=== PATIENT | female | born 1935 | race Caucasian/White ===

== ENCOUNTER 2016-07-11 15:39 | Outpatient (CLI) | payer MEDICARE, OTHER | END 2016-07-11 15:40 | disposition home or self-care (01) | DX: M16.0 Bilateral primary osteoarthritis of hip (principal) ==

== ENCOUNTER 2021-04-02 06:13 | Outpatient (CLI) | payer MEDICARE | END 2021-04-02 06:14 | disposition EMS.NT | LOC: EMS 06:13 | DX: I83.893 Varicose veins of bilateral lower extremities with other complications (principal) ==

== ENCOUNTER 2021-04-02 09:17 | Outpatient (CLI) | payer MEDICARE | END 2021-04-02 09:18 | disposition critical access hospital (66) | LOC: EMS 09:17 | DX: R55 Syncope and collapse (principal); R56.9 Unspecified convulsions | CPT/HCPCS: A0425; A0427 ==

== ENCOUNTER 2021-04-02 09:55 | Emergency (ER) | payer MEDICARE ==
[2021-04-02] MEDS ORDERED: SODIUM CHLORIDE 0.9% 1,000 ML IV STA (10:09)
--- NOTE | 2021-04-02 10:11 | ED Physician Documentation ---
History of Present Illness - Stated complaint Stated Complaint: BLEEDING/WEAKNESS - Chief complaint Chief Complaint: Neuro - History obtained from History obtained from: Patient, Family, EMS - History of Present Illness Timing: Today - Additonal information Additional information: 85-year-old female with a history of atrial fibrillation on Eliquis has had a bleeding from a varicose vein and apparently there was quite a bit of blood loss associated with this the bleeding is now stopped however the patient has had tonic-clonic seizure associated with attempting to sit up this morning. On the second medic visit the patient was transported the hospital for further evaluation. Review of Systems Constitutional: denies: Fever Eyes: denies: Decreased vision Ears: denies: Ear pain Nose: denies: Congestion Throat: denies: Sore throat Cardiac: denies: Chest pain / pressure, Palpitations Respiratory: denies: Dyspnea, Cough GI: denies: Abdominal Pain, Nausea, Vomiting, Constipation, Diarrhea : denies: Dysuria Skin: denies: Rash Musculoskeletal: reports: Extremity pain. denies: Neck pain, Back pain Neurologic: reports: Generalized weakness, Seizure. denies: Focal weakness, Numbness, Headache, Head injury, LOC PD PAST MEDICAL HISTORY - Present Medications Home Medications: Ambulatory Orders Medication Instructions Recorded Confirmed Apixaban [Eliquis] 5 mg ORAL BID 04/02/21 04/02/21 Metoprolol Succinate [Toprol Xl] 50 mg PO BID 04/02/21 04/02/21 Pravastatin [Pravachol] 10 mg PO HS 04/02/21 04/02/21 - Allergies Allergies/Adverse Reactions: Allergies Allergy/AdvReac Type Severity Reaction Status Date / Time No Known Drug Allergies Allergy Verified 04/02/21 10:00 PD ED PE NORMAL - Vitals Vital signs reviewed: Yes - General General: No acute distress, Well developed/nourished - HEENT HEENT: Atraumatic (to deep palpation of the entire skull ), PERRL, EOMI - Neck Neck: Supple, no meningeal sign, No bony TTP - Cardiac Cardiac: RRR, No murmur - Respiratory Respiratory: No respiratory distress, Clear bilaterally - Abdomen Abdomen: Normal bowel sounds, Soft, Non tender, Non distended, No organomegaly - Back Back: No CVA TTP, No spinal TTP - Derm Derm: Normal color, Warm and dry, No rash - Extremities Extremities: No deformity, No edema - Neuro Neuro: net sql developer 2-12 intact, No motor deficit, No sensory deficit, Normal speech Eye Opening: Spontaneous Motor: Obeys Commands Verbal: Confused GCS Score: 14 - Psych Psych: Normal mood, Normal affect Results - Vitals Vitals: Vital Signs - 24 hr 04/02/21 04/02/21 04/02/21 10:00 10:14 11:43 Temperature 36.3 C L 36 C L Heart Rate 79 81 97 Respiratory 18 18 20 Rate Blood Pressure 113/61 105/59 L 105/53 L O2 Saturation 99 100 96 04/02/21 12:58 Temperature 36 C L Heart Rate 97 Respiratory 18 Rate Blood Pressure 116/66 O2 Saturation 97 Oxygen O2 Source Room air - EKG (time done) 1021 Rate: Rate (enter#) (84) Rhythm: Atrial fibrillation [place]: LAD Intervals: Prolonged QT (borderline) Ischemia: Non specific changes (diffuse T wave flattening. ) Compare to prior EKG: Old EKG unavailable Computer interpretation: Agree with computer - Labs Labs: Laboratory Tests 04/02/21 04/02/21 04/02/21 10:32 10:32 10:32 WBC 12.3 H RBC 2.55 L Hgb 8.5 L Hct 25.6 L MCV 100.4 H MCH 33.3 H MCHC 33.2 RDW 12.8 Plt Count 125 L MPV 10.8 Neut # (Auto) 10.8 H Lymph # (Auto) 0.6 L [place] # (Auto) 0.8 Eos # (Auto) 0.0 Baso # (Auto) 0.0 Absolute Nucleated RBC 0.00 Nucleated RBC % 0.0 Sodium 133 L Potassium 3.7 Chloride 102 Carbon Dioxide 21 Anion Gap 10.0 BUN 28 H Creatinine 1.0 Estimated GFR (MDRD) 53 L Glucose 122 H Calcium 8.0 L Total Bilirubin 0.9 AST 64 H ALT 56 Alkaline Phosphatase 41 L Total Protein 5.2 L Albumin 3.2 Globulin 2.0 L Albumin/Globulin Ratio 1.6 Lipase 32 Blood Type O POSITIVE Antibody Screen NEGATIVE 04/02/21 12:47 WBC RBC Hgb 9.4 L Hct 27.6 L MCV MCH MCHC RDW Plt Count MPV Neut # (Auto) Lymph # (Auto) [place] # (Auto) Eos # (Auto) Baso # (Auto) Absolute Nucleated RBC Nucleated RBC % Sodium Potassium Chloride Carbon Dioxide Anion Gap BUN Creatinine Estimated GFR (MDRD) Glucose Calcium Total Bilirubin AST ALT Alkaline Phosphatase Total Protein Albumin Globulin Albumin/Globulin Ratio Lipase Blood Type Antibody Screen - Rads (name of study) CT head Radiology: Prelim report reviewed (Impression: No intracranial hemorrhage is seen. No significant intracranial abnormality is seen. Age-appropriate brain parenchymal volume loss and chronic small vessel ischemic changes can be seen.), EMP read indepedently, See rad report Procedures - IVC sono (time) 1004 Bedside IVC sono: IVC measures (cm) (1.02), IVC collapsed c insp (cm) ( complete), Dehydration (est 1-2 liter deficit after 500ml in.) PD MEDICAL DECISION MAKING - ED course Complexity details: reviewed results, re-evaluated patient, considered differential, d/w patient, d/w family ED course: 85-year-old pleasantly demented female has had some bleeding beginning last night and bled quite a bit over her house. The family brings in photographs of the amount of blood loss and the patient had recurrent seizure when trying to sit up. She arrived to the emergency department pale and her color improved with additional fluids. She was found to be deficient more than 1 L after the first liter had been infused. She did receive a second liter of fluid felt improved her initial blood counts were concerning for possible transfusion her second blood counts were improved. She is well outside of the transfusion threshold. The road test is attempted in the emergency department Departure - Departure Disposition: 01 Home, Self Care Clinical Impression: Acute blood loss anemia, Dehydration determined by examination, Syncopal seizure Condition: Stable Instructions: ED Anemia Type Not Specified, ED Dehydration Follow-Up: EMRE ADAMS MD [Physician No Access] - Comments: Ana Rosa has lost a lot of blood but she has not lost enough to need a transfusion. She will be weaker than normal and will require some time to recover her blood counts. A follow up with her primary care physician in the next 2 weeks is recommended.
[2021-04-02 10:44] LABS: BASOPHILS % (AUTO) 0.2 %; HCT - HEMATOCRIT 25.6 % (37.0-47.0); HGB - HEMOGLOBIN 8.5 g/dL (12.0-16.0); LYMPHOCYTES # (AUTO) 0.6 10^3/uL (1.5-3.5); LYMPHOCYTES % (AUTO) 4.8 %; MEAN CORPUSCULAR HEMOGLOBIN 33.3 pg (27.0-31.0); MEAN CORPUSCULAR HGB CONC 33.2 g/dL (32.0-36.0); MEAN CORPUSCULAR VOLUME 100.4 fL (81.0-99.0); MEAN PLATELET VOLUME 10.8 fL (7.9-10.8); MONOCYTES # (AUTO) 0.8 10^3/uL (0.0-1.0); MONOCYTES % (AUTO) 6.7 %; NEUTROPHILS # (AUTO) 10.8 10^3/uL (1.5-6.6); NEUTROPHILS % (AUTO) 87.8 %; PLT - PLATELET COUNT 125 10^3/uL (130-450); RED BLOOD COUNT 2.55 10^6/uL (4.20-5.40); RED CELL DISTRIBUTION WIDTH 12.8 % (12.0-15.0); WHITE BLOOD COUNT 12.3 x10^3/uL (4.8-10.8)
[2021-04-02 10:52] LABS: ALBUMIN 3.2 g/dL (3.2-5.5); ALBUMIN/GLOBULIN RATIO 1.6 (1.0-2.2); BILIRUBIN,TOTAL 0.9 mg/dL (0.2-1.0); POTASSIUM 3.7 mmol/L (3.5-5.0); TOTAL PROTEIN 5.2 g/dL (6.7-8.2)
--- NOTE | 2021-04-02 12:41 | CT Report ---
PROCEDURE: HEAD WO INDICATIONS: fall altered eliquis TECHNIQUE: Noncontrast 4.5 mm thick angled axial sections acquired from the foramen magnum to the vertex. For r adiation dose reduction, the following was used: automated exposure control, adjustment of mA and/or kV according to patient size. COMPARISON: None. FINDINGS: Image quality: There is streak artifact seen through the skull base. CSF spaces: Basal cisterns are patent. No extra-axial fluid collections. Ventricles are normal in size and shape. Brain: No midline shift. No intracranial masses or hemorrhage. Jeffers-white matter interface is norm al. Skull and face: Calvarium and visualized facial bones are intact, without suspicious lesions. Sinuses: Visualized sinuses and mastoids are clear. IMPRESSION: No intracranial hemorrhage is seen. No significant intracranial abnormality is seen. Age-appropriate brain parenchymal volume loss and chronic small vessel ischemic change can be seen. Reviewed by: Oleksandr Roberts MD on 04/02/2021 11:39 AM CHRISTINA Approved by: Oleksandr Roberts MD on 04/02/2021 11:39 AM CHRISTINA Station ID: [id number]
[2021-04-02 12:51] LABS: HCT - HEMATOCRIT 27.6 % (37.0-47.0); HGB - HEMOGLOBIN 9.4 g/dL (12.0-16.0)
[2021-04-02 13:52] VITALS: BP 120/64
== END 2021-04-02 13:49 | disposition home or self-care (01) ==
LOC: EDUNIT# → ED 09:55
DX: D62 Acute posthemorrhagic anemia (principal); E86.0 Dehydration; G40.89 Other seizures
CPT/HCPCS: 36415; 80053; 83690; 85014; 85018; 85025; 86850; 86900; 86901; 93005; 96360; 99284

== ENCOUNTER 2021-06-23 13:25 | Outpatient (CLI) | payer MEDICARE, OTHER | END 2021-06-23 13:26 | disposition critical access hospital (66) | LOC: EMS 13:25 | DX: I83.892 Varicose veins of left lower extremity with other complications (principal); R56.9 Unspecified convulsions | CPT/HCPCS: A0425; A0427 ==

== ENCOUNTER 2021-06-23 14:03 | Observation (INO) | payer MEDICARE, OTHER ==
--- NOTE | 2021-06-23 14:03 | ED Physician Documentation ---
PD HPI SYNCOPE - Stated complaint Stated Complaint: SZ/S/P BLEEDING - History obtained from History obtained from: Patient, EMS - History of Present Illness Witnessed: Witnessed (by daughter) Timing - onset: Today Duration: Minutes (daughter reports patient pale and lightheaded with leg bleeding, then fainted and had some twitching seizure like movements briefly. Roused slowly after a minute or so. EMS subsequently says pt confused on their arrival, with slow improvement enroute. They applied tight wrap over wound.) Preceding symptoms: Other (she was in bathroom and not aware of injury per se, but noted onset of bleeding left lower leg briskly (darker blood). Daughter held towel over it but bleeding continued. patient got lightheaded and pale and fainted. LOC for minute with seizure like tremoring per daughter. EMS reports confusion.). No: Headache, Chest pain, Abdominal pain Associated symptoms: Seizure (daughter states tremoring movements when fainted.). No: Incontinant of urine, Chest pain, Abdominal pain Contributing factors: Noxious stimulae (bleeding from leg. Not having pain per se.), Other (having brisk bleeding from lower leg varicose vein injury (just rubbed it in bathroom).) Injury occurred: No: Head injury, Neck injury Similar symptoms before: Diagnosis (had bleeding from varicose vein with subsequent fainting 2 months ago. Hgb 8.4 at that time and did not need transfusion.) Recently seen: Emergency Dept (2 months ago for similar) Review of Systems Constitutional: denies: Fever, Chills Nose: denies: Rhinorrhea / runny nose, Congestion Throat: denies: Sore throat Cardiac: denies: Chest pain / pressure Respiratory: denies: Dyspnea, Cough GI: denies: Abdominal Pain, Nausea, Vomiting, Diarrhea Skin: reports: Abrasion (s). denies: Laceration (s) Musculoskeletal: denies: Neck pain, Back pain Neurologic: reports: Syncope. denies: Focal weakness, Numbness, Headache PD PAST MEDICAL HISTORY - Past Medical History Cardiovascular: Hypertension, Atrial fibrillation (on metoprolol 50 mg BID) Respiratory: None Neuro: None Endocrine/Autoimmune: None - Present Medications Home Medications: Ambulatory Orders Medication Instructions Recorded Confirmed Apixaban [Eliquis] 5 mg ORAL BID 04/02/21 04/02/21 Pravastatin [Pravachol] 10 mg PO HS 04/02/21 04/02/21 Metoprolol Tartrate [Lopressor] 50 mg PO BID 06/23/21 - Allergies Allergies/Adverse Reactions: Allergies Allergy/AdvReac Type Severity Reaction Status Date / Time No Known Drug Allergies Allergy Verified 06/23/21 14:10 - Living Situation Living Situation: reports: With family Living Arrangement: reports: At home - Social History Does the pt smoke?: No Does the pt drink ETOH?: No - Family History Family history: reports: CAD PD ED PE NORMAL - Vitals Vital signs reviewed: Yes (BP borderline hypotensive. ) - General General: Alert and oriented X 3, No acute distress - HEENT HEENT: Atraumatic - Neck Neck: Supple, no meningeal sign, No adenopathy - Cardiac Cardiac: No murmur. No: RRR (irregular but rate controlled. ) - Respiratory Respiratory: Clear bilaterally, Other (no chestwall tenderness.) - Abdomen Abdomen: Soft, Non tender - Derm Derm: Warm and dry. No: Normal color (generally pale. ) - Extremities Extremities: No tenderness to palpate, Normal ROM s pain, No edema, No calf tenderness / cord, Other (varicosities prominent on both lower legs. Left lower anterolateral with small 1/2 cm or less area of steady bleeding from raised varicosity once dressing removed. THe bleeding can be stopped with single fingertip direct pressure. ) Results - Vitals Vitals: Vital Signs - 24 hr 06/23/21 06/23/21 06/23/21 14:10 14:30 14:48 Temperature 36.5 C Heart Rate 86 83 82 Respiratory 16 16 14 Rate Blood Pressure 105/45 L 96/43 L 106/54 L O2 Saturation 100 100 100 06/23/21 15:23 Temperature Heart Rate 88 Respiratory 16 Rate Blood Pressure O2 Saturation 100 Oxygen O2 Source Room air - EKG (time done) 14:51 Rate: Rate (enter#) (84) Rhythm: Atrial fibrillation [place]: Normal Ischemia: Normal ST segments, Non specific changes. No: ST elevation c/w ischemia - Labs Labs: Laboratory Tests 06/23/21 06/23/21 06/23/21 14:35 14:35 14:35 WBC 7.4 RBC 2.25 L Hgb 6.2 L* Hct 20.3 L MCV 90.2 MCH 27.6 MCHC 30.5 L RDW 16.1 H Plt Count 171 MPV 10.3 Neut # (Auto) 5.8 Lymph # (Auto) 0.9 L [place] # (Auto) 0.7 Eos # (Auto) 0.1 Baso # (Auto) 0.0 Absolute Nucleated RBC 0.00 Nucleated RBC % 0.0 PT INR APTT Sodium 134 L Potassium 3.5 Chloride 106 Carbon Dioxide 21 Anion Gap 7.0 BUN 12 Creatinine 0.8 Estimated GFR (MDRD) 68 L Glucose 131 H Calcium 7.6 L Magnesium 2.1 Total Bilirubin 0.6 AST 18 ALT 11 Alkaline Phosphatase 41 L Troponin I High Sens 7.6 B-Natriuretic Peptide Total Protein 4.9 L Albumin 2.8 L Globulin 2.1 Albumin/Globulin Ratio 1.3 Lipase 32 Blood Type Antibody Screen Crossmatch IS Only 06/23/21 06/23/21 06/23/21 14:35 14:35 14:35 WBC RBC Hgb Hct MCV MCH MCHC RDW Plt Count MPV Neut # (Auto) Lymph # (Auto) [place] # (Auto) Eos # (Auto) Baso # (Auto) Absolute Nucleated RBC Nucleated RBC % PT 16.0 H INR 1.4 H APTT 25.2 Sodium Potassium Chloride Carbon Dioxide Anion Gap BUN Creatinine Estimated GFR (MDRD) Glucose Calcium Magnesium Total Bilirubin AST ALT Alkaline Phosphatase Troponin I High Sens B-Natriuretic Peptide 395 H Total Protein Albumin Globulin Albumin/Globulin Ratio Lipase Blood Type O POSITIVE Antibody Screen NEGATIVE Crossmatch IS Only See Detail - Rads (name of study) chest xray Radiology: Prelim report reviewed (no acute process), See rad report Procedures - Laceration (location) lower leg varicosity Length in cm: 0.5 (varicosity with small 1/2 cm abrasion/lac with brisk dripping of blood when bandage removed. ) Wound type: Stellate Neurovascular status: Sensory intact, Motor intact Anesthesia: Lidocaine 1% with epi Wound preparation: Other (cleansed with tap water well.) Skin layer closure: Nylon, Interrupted, Size #-0 - enter number (4), Sutures - enter # (2), Other (purse stitch done to pull together around the bleeding vessel with cessation of bleeding.) PD MEDICAL DECISION MAKING - ED course Complexity details: reviewed results (significant blood loss with Hgb change from 9.4 last one 2 months ago, and now 6.2. She is still feeling weak and "confused" without headache. ), considered differential (EMS reports large blood loss onto towels at home and dressings enroute. The current dressing on arrival with some blood soaking. ), d/w patient, d/w family (daughter) ED course: acute blood loss with acute on chronic anemia, with syncope and still relatively low BP. Given IV fluids small bolus and BP above 100. SHe will need transfusion so I did not igive large fluid bolus so as to have ability to give blood without fluid overload. Departure - Departure Disposition: ED Place in Observation Clinical Impression: Acute anemia, Syncopal seizure Varicosities of leg Qualifiers: Varicose vein complication: unspecified Laterality: bilateral Qualified Code(s): I83.93 - Asymptomatic varicose veins of bilateral lower extremities Condition: Stable Record reviewed to determine appropriate education?: Yes Discharge Date/Time: 06/23/21 17:02
[2021-06-23] MEDS ORDERED: SODIUM CHLORIDE 0.9% 500 ML IV STA (14:13)
--- NOTE | 2021-06-23 14:52 | XRAY Report ---
PROCEDURE: Chest 1 View X-Ray INDICATIONS: Chest Pain TECHNIQUE: One view of the chest was acquired. COMPARISON: None. FINDINGS: Surgical changes and devices: None. Lungs and pleura: Blunting of the left costophrenic angle. No pneumothorax. Prominent interstitial ma rkings. Mediastinum: Mediastinal contours are within normal limits. Calcified aortic arch. Heart size is at the limits of normal. Bones and chest wall: No suspicious bony lesions. Overlying soft tissues appear unremarkable. IMPRESSION: Suspect trace left pleural effusion. Question pulmonary vasculature engorgement. Reviewed by: Bhanu Mahoney MD on 06/23/2021 2:50 PM PST Approved by: Bhanu Mahoney MD on 06/23/2021 2:50 PM PST Station ID: [id number]
[2021-06-23 14:55] LABS: BASOPHILS % (AUTO) 0.5 %; EOSINOPHILS # (AUTO) 0.1 10^3/uL (0.0-0.7); EOSINOPHILS % (AUTO) 0.7 %; HCT - HEMATOCRIT 20.3 % (37.0-47.0); LYMPHOCYTES # (AUTO) 0.9 10^3/uL (1.5-3.5); LYMPHOCYTES % (AUTO) 11.6 %; MEAN CORPUSCULAR HEMOGLOBIN 27.6 pg (27.0-31.0); MEAN CORPUSCULAR HGB CONC 30.5 g/dL (32.0-36.0); MEAN CORPUSCULAR VOLUME 90.2 fL (81.0-99.0); MEAN PLATELET VOLUME 10.3 fL (7.9-10.8); MONOCYTES # (AUTO) 0.7 10^3/uL (0.0-1.0); MONOCYTES % (AUTO) 9.4 %; NEUTROPHILS # (AUTO) 5.8 10^3/uL (1.5-6.6); NEUTROPHILS % (AUTO) 77.3 %; PLT - PLATELET COUNT 171 10^3/uL (130-450); RED BLOOD COUNT 2.25 10^6/uL (4.20-5.40); RED CELL DISTRIBUTION WIDTH 16.1 % (12.0-15.0); WHITE BLOOD COUNT 7.4 x10^3/uL (4.8-10.8)
[2021-06-23 14:59] LABS: INR 1.4 (0.8-1.2)
[2021-06-23 15:01] LABS: ALBUMIN 2.8 g/dL (3.2-5.5); ALBUMIN/GLOBULIN RATIO 1.3 (1.0-2.2); BILIRUBIN,TOTAL 0.6 mg/dL (0.2-1.0); CALCIUM 7.6 mg/dL (8.5-10.3); CREATININE 0.8 mg/dL (0.4-1.0); MAGNESIUM 2.1 mg/dL (1.7-2.8); POTASSIUM 3.5 mmol/L (3.5-5.0); TOTAL PROTEIN 4.9 g/dL (6.7-8.2)
[2021-06-23 15:03] LABS: HGB - HEMOGLOBIN 6.2 g/dL (12.0-16.0)
[2021-06-23 15:06] LABS: PARTIAL THROMBOPLASTIN TIME 25.2 secs (24.9-33.3)
[2021-06-23] MEDS ORDERED: SODIUM CHLORIDE FLUSH 0.9% 10 ML SYRINGE IVP PRN (15:52)
[2021-06-23] MEDS ORDERED: ACETAMINOPHEN 325 MG TABLET PO PRN (15:52)
[2021-06-23] MEDS ORDERED: ONDANSETRON 4 MG/2 ML VIAL IVP PRN (15:52)
--- NOTE | 2021-06-23 15:56 | HISTORY & PHYSICAL EXAMINATION ---
Chief Complaint - Chief Complaint Chief Complaint: syncope History of Present Illness - Admitted From Admitted From:: ER - History Obtained From Records Reviewed: [facility] History obtained from: pt and pt's daughter Exam Limitations: pt's dementia - History of Present Illness HPI Comment/Other: This is a 85-years old female with a past medical history significant for hypertension, hyperlipidemia, A fibrillation with Eliquis, dementia, chronic anemia, varicose vein on bilateral lower extremities, who present ER complain of syncope after varicose vein bleeding. pt has hx of dementia, she is a poor historian. her daughter at bedside provide history. she report her mother lost "lots of blood" on her left ankle from her a small burst of varicose vein when she was in the bathroom. After she lost blood, she begin to have tonic-clonic seizure associated with attempting to sit up in the morning, and following up she lost Consciousness for "quite bit time." she did not count the time. Her daughter report this was exactly happened at Sep. on this year. Otherwise, her daughter report pt never had seizure before or after. In the ER, routine tests show patient had a hemoglobin 6.6. Patient's daughter does not know if patient had black stool. Patient denies any pain, fever, chill, or shortness of breathing. Discussed care goal with patient and patient's daughter, She state she hope to have CPR but she does not want intubation. History - Past Medical History Cardiovascular: reports: Hypertension, High cholesterol, Atrial fibrillation Respiratory: reports: None Neuro: reports: Dementia Endocrine/Autoimmune: reports: None CHIEF NURSING OFFICER: reports: Endometriosis : reports: None Psych: reports: None Musculoskeletal: reports: Osteoarthritis, Other Derm: reports: Other MRSA Hx?: No - Past Surgical History /CHIEF NURSING OFFICER: reports: Hysterectomy - Family & Social History Family History: Mother: , Father: Family History Comment/Other: Her father at age 86 from failure of the pacemaker and cardiac problem. Her mother at age 79 from complicated infection. Social History Notes: Denies history of cigarette smoking, alcohol or drug issue Meds/Allgy - Home Medications Home Medications: Ambulatory Orders Medication Instructions Recorded Confirmed Apixaban [Eliquis] 5 mg ORAL BID 04/02/21 04/02/21 Pravastatin [Pravachol] 10 mg PO HS 04/02/21 04/02/21 Metoprolol Tartrate [Lopressor] 50 mg PO BID 06/23/21 - Allergies Allergies/Adverse Reactions: Allergies Allergy/AdvReac Type Severity Reaction Status Date / Time No Known Drug Allergies Allergy Verified 06/23/21 14:10 Review of Systems - Constitutional Constitutional: denies: Fever, Chills - Eyes Eyes: denies: Pain - Ears, Nose & Throat Ears, Nose & Throat: denies: Ear pain, Nosebleeds - Cardiovascular Cariovascular: reports: Syncope. denies: Palpitations, Chest pain, Exertional dyspnea, Decr. exercise tolerance - Respiratory Respiratory: denies: Cough, SOB at rest, SOB with exertion - Gastrointestinal Gastrointestinal: denies: Abdominal pain, Diarrhea, Nausea, Vomiting - Genitourinary Genitourinary: denies: Dysuria - Neurological Neurological: reports: Seizures. denies: Focal weakness, Headache, Abnormal gait, Incoordination, Slurred speech Exam - Vital Signs Vital Signs: Vital Signs x48h Temp Pulse Resp BP Pulse Ox 06/23/21 15:23 88 16 100 06/23/21 14:48 82 14 106/54 L 100 06/23/21 14:30 83 16 96/43 L 100 06/23/21 14:10 36.5 C 86 16 105/45 L 100 - Physical Exam General Appearance: positive: No acute distress, Alert. negative: Lethargic Eyes Bilateral: positive: Normal inspection, No lid inflammation ENT: positive: ENT inspection nml, No signs of dehydration. negative: Purulent nasal drainage Neck: positive: Nml inspection, Trachea midline. negative: Tracheal deviation Respiratory: positive: Chest non-tender, No respiratory distress, Breath sounds nml. negative: Wheezes, Rales Cardiovascular: positive: Regular rate & rhythm, No murmur. negative: Tachycardia, Bradycardia, Systolic murmur Peripheral Pulses: positive: 2+ Abdomen: positive: Non-tender, Nml bowel sounds, No distention. negative: Tenderness Back: positive: Nml inspection Skin: positive: Warm, Dry, Pallor. negative: Cyanosis Extremities: positive: Non-tender, Nml appearance Neurologic/Psychiatric: positive: Motor nml, Sensation nml, Mood/affect nml. negative: Weakness, Sensory loss, Facial droop, Slurred/abnml speech, Depressed mood/affect Conclusion/Plan - Problem List (1) Syncopal seizure Conclusion/Plan: Patient's daughter report patient had a seizure first then she had syncope after pt loss of lots of blood from her varicose vein. she took eliquis for her afib. Patient had no history of seizure. This is likely caused by acute blood loss and hypoperfusion of the brain. Indeed patient had hemoglobin 6.6 on today, she had hemoglobin 9.4 at 3 months ago. Patient had a negative troponin, EKG show chronic A fibrillation. At this point we will transfusion blood for patient, we will continue seizure precaution for patient, patient may have echo study in the hospital or she may follow-up with outpatient echo study. continue tele and vital monitor. (2) Acute blood loss anemia Conclusion/Plan: pt's HGB is 6.6, pt loss of lots of blood from her left ankle varicose vein. We will transfusion blood for patient. We will continue H&H monitor hemoglobin. Patient's daughter does not know if patient had black stool, we will have stool blood test for pt, pt Take Eliquis in the home for her a fibrillation. pt's MCV is less 90, will do anemia study. We will hold Eliquis now because patient had acute blood loss from left varicose vein. Patient has no more bleeding from varicose vein now After the ER treated. (3) Varicosities of leg Conclusion/Plan: Patient had a history of varicosities of the leg, And patient take Eliquis for her atrial fibrillation. discussed with patient's daughter for how to prevention bleeding. her daughter understood Patient naturally had a risk of bleeding because she take Eliquis blood thinner. Qualifiers: Varicose vein complication: unspecified Laterality: bilateral Qualified Code(s): I83.93 - Asymptomatic varicose veins of bilateral lower extremities (4) Chronic a-fib Conclusion/Plan: Heart rate is stable, we will resume home metoprolol, continue school bus monitor, hold Eliquis right now because of varicose bleeding. - Lab Results Fish Bones: 06/23/21 14:35 06/23/21 14:35 Core Measures - Anticipated LOS I expect patient to be DC'd or transferred within 96 hours.: Yes - DVT/VTE - Prophylaxis VTE/DVT Device ordered at admit?: Yes VTE/DVT Prophylaxis med ordered at admit?: Yes
[2021-06-23] MEDS ORDERED: METOPROLOL 5 MG/5 ML VIAL IVP PRN (16:48)
[2021-06-23 17:10] LABS: ABSOLUTE RETICS # AUTO 0.018 10^6/uL (0.020-0.110); RED BLOOD COUNT 2.49 10^6/uL (4.20-5.40); RETICULOCYTE COUNT % (AUTO) 0.73 % (0.5-2.3)
[2021-06-23 17:14] LABS: B. PARAPERTUSSIS- RESP PCR PAN NOT DETECTED; B. PERTUSSIS- RESP PCR PANEL NOT DETECTED; CORONAVIRUS 229E-RESP PCR NOT DETECTED; CORONAVIRUS HKU1-RESP PCR NOT DETECTED; CORONAVIRUS NL63-RESP PCR NOT DETECTED; CORONAVIRUS OC43-RESP PCR NOT DETECTED; HUMAN METAPNEUMOVIRUS NOT DETECTED; INFLUENZA A- RESP PCR PANEL NOT DETECTED; INFLUENZA B - RESP PCR PANEL NOT DETECTED; PARAINFLUENZA VIRUS 1 NOT DETECTED; PARAINFLUENZA VIRUS 2 NOT DETECTED; PARAINFLUENZA VIRUS 3 NOT DETECTED; PARAINFLUENZA VIRUS 4 NOT DETECTED; RHINOVIRUS/ENTEROVIRUS NOT DETECTED; RSV- RESP PCR PANEL NOT DETECTED; SARS-CoV-2 -RESP PCR PANEL NOT DETECTED
[2021-06-23 17:15] LABS: C. PNEUMONIAE- RESP PCR PANEL NOT DETECTED; M. PNEUMONIAE- RESP PCR PANEL NOT DETECTED
[2021-06-23 17:33] LABS: % IRON SATURATION 4 % (20-50); IRON 17 ug/dL (28-170); TOTAL IRON BINDING CAPACITY 389 ug/dL (250-450); TRANSFERRIN 278 mg/dL (192-382)
[2021-06-23 17:44] LABS: FERRITIN 6.5 ng/mL (11.0-306.8)
[2021-06-23 21:54] LABS: HCT - HEMATOCRIT 24.1 % (37.0-47.0); HGB - HEMOGLOBIN 7.5 g/dL (12.0-16.0)
[2021-06-23] MEDS: SODIUM CHLORIDE FLUSH 0.9% 10 ML SYRINGE IVP SCH (22:38)
[2021-06-23] MEDS: METOPROLOL TARTRATE 50 MG TABLET PO SCH (22:39)
[2021-06-23] MEDS: FERROUS GLUCONATE 324 MG TABLET PO SCH (22:39)
[2021-06-24] MEDS: SODIUM CHLORIDE FLUSH 0.9% 10 ML SYRINGE IVP SCH ×2 (00:18→08:31)
[2021-06-24 06:22] LABS: BASOPHILS % (AUTO) 0.3 %; EOSINOPHILS # (AUTO) 0.1 10^3/uL (0.0-0.7); EOSINOPHILS % (AUTO) 1.1 %; HCT - HEMATOCRIT 22.7 % (37.0-47.0); HGB - HEMOGLOBIN 7.1 g/dL (12.0-16.0); LYMPHOCYTES # (AUTO) 1.2 10^3/uL (1.5-3.5); LYMPHOCYTES % (AUTO) 19.3 %; MEAN CORPUSCULAR HEMOGLOBIN 26.8 pg (27.0-31.0); MEAN CORPUSCULAR HGB CONC 31.3 g/dL (32.0-36.0); MEAN CORPUSCULAR VOLUME 85.7 fL (81.0-99.0); MEAN PLATELET VOLUME 9.9 fL (7.9-10.8); MONOCYTES # (AUTO) 0.5 10^3/uL (0.0-1.0); MONOCYTES % (AUTO) 8.5 %; NEUTROPHILS # (AUTO) 4.5 10^3/uL (1.5-6.6); NEUTROPHILS % (AUTO) 70.5 %; PLT - PLATELET COUNT 159 10^3/uL (130-450); RED BLOOD COUNT 2.65 10^6/uL (4.20-5.40); RED CELL DISTRIBUTION WIDTH 16.6 % (12.0-15.0); WHITE BLOOD COUNT 6.3 x10^3/uL (4.8-10.8)
[2021-06-24 06:32] LABS: CALCIUM 8.1 mg/dL (8.5-10.3); CREATININE 0.7 mg/dL (0.4-1.0); POTASSIUM 3.1 mmol/L (3.5-5.0)
[2021-06-24] MEDS ORDERED: POTASSIUM CHLORIDE 20 MEQ TABLET PO ONE (07:09)
[2021-06-24] MEDS: FERROUS GLUCONATE 324 MG TABLET PO SCH (08:30)
[2021-06-24] MEDS: METOPROLOL TARTRATE 50 MG TABLET PO SCH (08:31)
--- NOTE | 2021-06-24 11:17 | PHARMACY PROGRESS NOTE ---
- Best Possible Medication History Admit Date and Time: 06/23/21 1552 Processed by: Pharmacy Medication History completed: Yes Secondary Source(s): Pharmacy records, Insurance records As the person ultimately responsible for medication therapy, providers are able to order a medication from an existing home medication list in [facility] via the "Reconcile Routine" prior to Confirmation of that medication by computer support specialist instructor. Such practice is discouraged except when the physician, in their clinical judgment, deems that a medical need exists for a medication without regard to previous use.
[2021-06-24 13:01] LABS: FECAL OCCULT BLOOD (FIT) NEGATIVE (NEGATIVE)
[2021-06-24 13:17] VITALS: BP 108/46
[2021-06-24 13:41] LABS: HCT - HEMATOCRIT 27.5 % (37.0-47.0); HGB - HEMOGLOBIN 8.8 g/dL (12.0-16.0)
--- NOTE | 2021-06-24 14:00 | Discharge Plan ---
Discharge Plan Problem Reviewed?: Yes Disposition: Home, Self Care Condition: Stable Prescriptions: Ferrous Gluconate [Fergon] 324 mg PO DAILYWM #30 tablet Diet: Regular Activity Restrictions: Activity as Tolerated Shower Restrictions: No (fall precaution) Instruction Topics: Spider Varicose Veins Self Care, Veins Spider Varicose, Anemia, Anemia Iron Deficiency Ch Health Concerns: varicose vein bleeding, Iron deficiency anemia Plan of Treatment: Discussed your care with your daughter on yesterday. your varicose veins bleeding is likely the cause of your hypoperfusion and induced your syncope seizure. Carefully protection your skin to prevention of skin breakdown. In the case it happen again, advise you raise your leg-lie down flat and raise the leg high; Pressure-put a clean cloth or gauze dressing on to the bleeding area and put firm pressure on it for at least 10 minutes, as the same time call 911 for help or present to ER immediately. Your guaiac stool blood test is negative. you may resume your home you are also found Iron deficiency, iron pill is prescribed for you. You may check your HGB when you see your PCP in one to two weeks. Care Goals: Stabilization, improvement and prevention of your varicose vein bleeding again. Assessment: Discussed the care plan with your daughter, answered her question, she understood Additional Instructions or Follow Up instructions: You may follow-up with your PCP in 1 to 2 weeks and recheck hemoglobin. should your symptoms return or worsen, you may present to ER or call 911 for help No Smoking: If you smoke, Please STOP! Call for help. Follow-up with: EMRE ADAMS MD [Primary Care Provider] -
--- NOTE | 2021-06-24 14:20 | DISCHARGE SUMMARY ---
Discharge Summary Admit Date: 06/23/21 Discharge Date: 06/24/21 Discharging Provider: Collin Zelaya Primary Care Provider: Ct Lemus Condition at Discharge: Stable Discharge Disposition: 01 Home, Self Care Discharge Facility Name: home - DIAGNOSES Discharge Diagnoses with Status of Each Condition: (1) Syncopal seizure pt has no seizure or syncope at hospital. pt has no dizziness or lightheaded when she went to bathroom. pt is Hemodynamic stable. pt's varicose veins bleeding is likely the cause of your hypoperfusion and induced your syncope seizure as pt happened three months ago. pt had two unit of blood transfusion. pt's HGB is 8.8 now (2) Acute blood loss anemia pt had two unit of blood transfusion. pt's HGB is 8.8 now The bleeding site of her left ankle is clean and no more bleeding. Pt's guaiac stool blood test is negative. pt may resume her home meds pt was also found Iron deficiency, iron pill is prescribed for her. pt may check her HGB when pt see your PCP in one to two weeks. 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 discussed the care plan with pt's daughter. pt may followup with vascular surgeon as out-pt if continue to have problem. 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 pt has hx of dementia, she is a poor historian. her daughter at bedside provide history. she report her mother lost "lots of blood" on her left ankle from her a small burst of varicose vein when she was in the bathroom. After she lost blood, she begin to have tonic-clonic seizure associated with attempting to sit up in the morning, and following up she lost Consciousness for "quite bit time." she did not count the time. Her daughter report this was exactly happened at Sep. on this year. Otherwise, her daughter report pt never had seizure before or after. In the ER, routine tests show patient had a hemoglobin 6.6. Patient's daughter does not know if patient had black stool. Patient denies any pain, fever, chill, or shortness of breathing. Discussed care goal with patient and patient's daughter, She state she hope to have CPR but she does not want intubation. - ALLERGIES Allergies/Adverse Reactions: Allergies Allergy/AdvReac Type Severity Reaction Status Date / Time No Known Drug Allergies Allergy Verified 06/23/21 14:10 - MEDICATIONS Home Medications: Ambulatory Orders Medication Instructions Recorded Confirmed Apixaban [Eliquis] 5 mg ORAL BID 04/02/21 06/24/21 Pravastatin [Pravachol] 10 mg PO QPM 04/02/21 06/24/21 Metoprolol Tartrate [Lopressor] 50 mg PO BID 06/23/21 06/24/21 Ferrous Gluconate [Fergon] 324 mg PO DAILYWM #30 tablet 06/24/21 - PHYSICAL EXAM AT DISCHARGE General Appearance: positive: No acute distress, Alert. negative: Lethargic Eyes Bilateral: positive: Normal inspection, No lid inflammation ENT: positive: ENT inspection nml, No signs of dehydration. negative: Purulent nasal drainage Neck: positive: Nml inspection, Trachea midline. negative: Tracheal deviation Respiratory: positive: Chest non-tender, No respiratory distress, Breath sounds nml. negative: Wheezes Cardiovascular: positive: Regular rate & rhythm. negative: Tachycardia, Bradycardia, Systolic murmur Peripheral Pulses: positive: 2+ Abdomen: positive: Non-tender, Nml bowel sounds, No distention. negative: Ten derness Back: positive: Nml inspection Skin: positive: Color nml, Warm, Dry, Other (left ankle skin is clean and no more bleeding). negative: Cyanosis, Skin rash, Decubitus Extremities: positive: Non-tender, Full ROM, Nml appearance. negative: Calf tenderness Neurologic/Psychiatric: positive: Motor nml, Sensation nml. negative: Weakness, Sensory loss, Facial droop, Slurred/abnml speech, Depressed mood/affect - LABS Result Diagrams: 06/24/21 13:32 06/24/21 05:40 - FOLLOW UP Follow Up: Discussed your care with your daughter on yesterday. your varicose veins bleeding is likely the cause of your hypoperfusion and induced your syncope seizure. Carefully protection your skin to prevention of skin breakdown. In the case it happen again, advise you raise your leg-lie down flat and raise the leg high; Pressure-put a clean cloth or gauze dressing on to the bleeding area and put firm pressure on it for at least 10 minutes, as the same time call 911 for help or present to ER immediately. Your guaiac stool blood test is negative. you may resume your home meds you are also found Iron deficiency, iron pill is prescribed for you. You may check your HGB when you see your PCP in one to two weeks. You may follow-up with your PCP in 1 to 2 weeks and recheck your hemoglobin. should your symptoms return or worsen, you may present to ER or call 911 for help - TIME SPENT Time Spent in Discharge (Minutes): 30
[2021-06-24] MEDS ORDERED: APIXABAN 5 MG TABLET PO SCH (21:00)
== END 2021-06-24 15:30 | disposition home or self-care (01) ==
LOC: EDUNIT# → ED 14:03 → MS2 15:52
PROVIDERS: ADMIT Nurse Practitioner Gerontology; ATTEND Nurse Practitioner Gerontology
DX: R55 Syncope and collapse (principal); R56.9 Unspecified convulsions; I83.892 Varicose veins of left lower extremity with other complications; I10 Essential (primary) hypertension; I48.20 Chronic atrial fibrillation, unspecified; I83.91 Asymptomatic varicose veins of right lower extremity; D62 Acute posthemorrhagic anemia; F03.90 Unspecified dementia, unspecified severity, without behavioral disturbance, psychotic disturbance, mood disturbance, and anxiety; E78.00 Pure hypercholesterolemia, unspecified; Z20.822 Contact with and (suspected) exposure to COVID-19; Z79.01 Long term (current) use of anticoagulants; Z79.899 Other long term (current) drug therapy; Z82.49 Family history of ischemic heart disease and other diseases of the circulatory system
CPT/HCPCS: 12001; 36415; 36430; 71045; 80048; 80053; 82274; 82607; 82728; 83540; 83615; 83690; 83735; 83880; 84466; 84484; 85014; 85018; 85025; 85045; 85610; 85730; 86850; 86900; 86901; 86920; 87631; 93005; 96360; 99284; A9270; G0378; P9016; 0202U

== ENCOUNTER 2022-11-27 07:53 | Outpatient (CLI) | payer MEDICARE ==
[2022-11-27 14:43] LABS: % IRON SATURATION 16 % (20-50); ALBUMIN/GLOBULIN RATIO 1.3 (1.0-2.2); ALKALINE PHOSPHATASE 58 IU/L (42-121); ALT ALANINE AMINOTRANSFERASE 18 IU/L (10-60); AST ASPARTATE AMINOTRANSFERASE 26 IU/L (10-42); BILIRUBIN,TOTAL 1.2 mg/dL (0.2-1.0); BUN - BLOOD UREA NITROGEN 13 mg/dL (6-20); CARBON DIOXIDE - CO2 27 mmol/L (21-32); CHLORIDE 106 mmol/L (101-111); CHOL/HDL RATIO 2.7 (<4.4); CHOLESTEROL 169 mg/dL; CREATININE 0.7 mg/dL (0.4-1.0); GFR - MDRD 79 (>89); GLUCOSE 103 mg/dL (70-100); HDL CHOLESTEROL 62 mg/dL; IRON 54 ug/dL (28-170); LDL CHOLESTEROL,CALCULATED 97 mg/dL; LDL/HDL RATIO 1.6 (<4.4); POTASSIUM 3.9 mmol/L (3.5-5.0); SODIUM 140 mmol/L (135-145); TOTAL IRON BINDING CAPACITY 346 ug/dL (250-450); TOTAL PROTEIN 7.2 g/dL (6.7-8.2); TRANSFERRIN 247 mg/dL (192-382); TRIGLYCERIDES 50 mg/dL; VLDL CHOLESTEROL 10 mg/dL
[2022-11-27 14:51] LABS: BASOPHILS % (AUTO) 0.6 %; EOSINOPHILS # (AUTO) 0.1 10^3/uL (0.0-0.7); EOSINOPHILS % (AUTO) 2.3 %; HCT - HEMATOCRIT 39.9 % (37.0-47.0); HGB - HEMOGLOBIN 12.6 g/dL (12.0-16.0); LYMPHOCYTES # (AUTO) 1.1 10^3/uL (1.5-3.5); LYMPHOCYTES % (AUTO) 32.2 %; MEAN CORPUSCULAR HEMOGLOBIN 32.6 pg (27.0-31.0); MEAN CORPUSCULAR HGB CONC 31.6 g/dL (32.0-36.0); MEAN CORPUSCULAR VOLUME 103.1 fL (81.0-99.0); MEAN PLATELET VOLUME 11.2 fL (7.9-10.8); MONOCYTES # (AUTO) 0.4 10^3/uL (0.0-1.0); MONOCYTES % (AUTO) 12.1 %; NEUTROPHILS # (AUTO) 1.9 10^3/uL (1.5-6.6); NEUTROPHILS % (AUTO) 52.8 %; PLT - PLATELET COUNT 143 10^3/uL (130-450); RED BLOOD COUNT 3.87 10^6/uL (4.20-5.40); RED CELL DISTRIBUTION WIDTH 13.1 % (12.0-15.0); WHITE BLOOD COUNT 3.5 x10^3/uL (4.8-10.8)
[2022-11-27 15:06] LABS: THYROID STIMULATING HORMONE 4.87 uIU/mL (0.34-5.60)
[2022-11-27 15:15] LABS: FOLATE 21.97 ng/mL (5.90 - >24.8)
== END 2022-11-27 07:54 | disposition home or self-care (01) ==
LOC: LAB.S 07:53
PROVIDERS: ATTEND Nurse Practitioner Family
DX: E78.5 Hyperlipidemia, unspecified (principal); I10 Essential (primary) hypertension; D64.9 Anemia, unspecified
CPT/HCPCS: 36415; 80053; 80061; 82607; 82728; 82746; 83540; 83721; 84443; 84466; 85025